=== PATIENT | female | born 1980 | race Caucasian/White ===

== ENCOUNTER 2022-01-10 22:44 | Emergency (ER) | payer MEDICAID ==
[~2022-01-10] VITALS: Ht 162.6 cm; Wt 58.2 kg
[2022-01-10 22:51] VITALS: BP 138/87
== END 2022-01-11 00:24 | disposition home or self-care (01) ==
LOC: ER 22:45
DX: J06.9 Acute upper respiratory infection, unspecified (principal); Z20.822 Contact with and (suspected) exposure to COVID-19; R51.9 Headache, unspecified; R05.9 Cough, unspecified; Z87.442 Personal history of urinary calculi
CPT/HCPCS: 87081; 87635; 87880; 99283; C9803